=== PATIENT | male | born 1970 | race American Indian/Alaskan Native ===

== ENCOUNTER 2018-04-28 07:08 | Emergency (ER) | payer BC ==
[2018-04-28 07:26] VITALS: BP 131/83; PULSE 61; RESP 18; TEMP 98; O2SAT 98
--- NOTE | 2018-04-28 07:43 | C.PDOC ---
History Of Present Illness 48-year-old male, presents to the emergency department with complaints of a productive cough, associated with white sputum and pleuritic pain. He notes mild occasional shortness of breath, but denies any recent travel, nausea/ vomiting, fever, rashes, back pain or any other associated symptoms. No other complaints at this time. Time Seen by Provider: 04/28/18 07:29 Chief Complaint (Nursing): Cough, Cold, Congestion Past Medical History Reviewed: Historical Data, Nursing Documentation, Vital Signs Vital Signs: Last Vital Signs Temp 98.0 F 04/28/18 07:24 Pulse 61 04/28/18 07:24 Resp 18 04/28/18 07:24 BP 131/83 04/28/18 07:24 Pulse Ox 98 04/28/18 08:30 Family History: States: No Known Family Hx - Social History Hx Alcohol Use: No Hx Substance Use: No - Immunization History Hx Tetanus Toxoid Vaccination: Yes Hx Influenza Vaccination: No Hx Pneumococcal Vaccination: No Review Of Systems Constitutional: Negative for: Fever, Chills Cardiovascular: Negative for: Edema, Light Headedness Respiratory: Positive for: Cough, Shortness of Breath, Pleuritic Pain, Sputum. Negative for: Hemoptysis, Wheezing Gastrointestinal: Negative for: Vomiting Musculoskeletal: Negative for: Neck Pain, Back Pain Skin: Negative for: Rash Neurological: Negative for: Weakness, Headache, Dizziness Physical Exam - Physical Exam Appears: Non-toxic, No Acute Distress Skin: Normal Color, Warm, Dry, No Rash Head: Atraumatic, Normacephalic Eye(s): bilateral: Normal Inspection, PERRL, EOMI Nose: Normal Oral Mucosa: Moist Lips: Normal Appearing Neck: Normal ROM Cardiovascular: Rhythm Regular, No Murmur Respiratory: Normal Breath Sounds, No Accessory Muscle Use Back: Normal Inspection Extremity: Normal ROM, No Deformity Neurological/Psych: Oriented x3, Normal Speech ED Course And Treatment O2 Sat by Pulse Oximetry: 98 (RA) Pulse Ox Interpretation: Normal - Radiology CXR: Interpreted by Me, Viewed By Me CXR Interpretation: Yes: No Acute Disease Medical Decision Making Medical Decision Making: Plan: * Chest X-Ray * Reassess and Disposition * 0827 xray reviewed; no acute infiltrate noted. will d/c home with pmd f/u Disposition Counseled Patient/Family Regarding: Studies Performed, Diagnosis, Need For Followup - Disposition Disposition: HOME/ ROUTINE Disposition Time: 08:29 Condition: GOOD Additional Instructions: Please follow up with your doctor in a few days. Take Tylenol or Motrin for pain if needed. Return to ER for fever, any worsening symptoms, or concerns. Instructions: Acute Bronchitis, Adult (DC) Forms: General Discharge Instructions, [email or web address] [facility] ([place]ian), Work Excuse - Clinical Impression Clinical Impression: Bronchitis - Scribe Statement The provider has reviewed the documentation as recorded by the Scribe (Merry Sorto) All medical record entries made by the Scribe were at my direction and personally dictated by me. I have reviewed the chart and agree that the record accurately reflects my personal performance of the history, physical exam, medical decision making, and the department course for this patient. I have also personally directed, reviewed, and agree with the discharge instructions and disposition.
--- NOTE | 2018-04-28 08:58 | RAD ---
Date of service: 04/28/2018 HISTORY: cough x 7 day COMPARISON: 05/22/2013 TECHNIQUE: Chest PA and lateral FINDINGS: LUNGS: No active pulmonary disease. PLEURA: No significant pleural effusion identified. No pneumothorax apparent. CARDIOVASCULAR: Normal. OSSEOUS STRUCTURES: No significant abnormalities. VISUALIZED UPPER ABDOMEN: Normal. OTHER FINDINGS: None. IMPRESSION: No active disease. Specifically no infiltrate appreciated
== END 2018-04-28 08:44 | disposition home or self-care (01) ==
LOC: C.ER 07:08
DX: J40 Bronchitis, not specified as acute or chronic (principal)

== ENCOUNTER 2018-12-19 09:31 | Outpatient (CLI) | payer OTHER | END 2018-12-19 09:32 | disposition home or self-care (01) | LOC: C.RADH 09:31 | DX: Z57.39 Occupational exposure to other air contaminants (principal) ==